=== PATIENT | female | born 1950 | race Caucasian/White ===

== ENCOUNTER 2017-02-05 09:57 | Emergency (ER) | payer OTHER ==
[~2017-02-05] VITALS: Ht 157.5 cm; Wt 62.5 kg
[2017-02-05] MEDS ORDERED: FERR324T12 PO (10:07)
[2017-02-05] MEDS ORDERED: LEVO25TA9 PO (10:07)
[2017-02-05] MEDS ORDERED: ASCO500 PO (10:07)
[2017-02-05] MEDS ORDERED: ASPI81TA2 PO (10:07)
[2017-02-05] MEDS ORDERED: ATOR10TA84 PO (10:07)
[2017-02-05] MEDS ORDERED: NIFE10 PO (10:07)
[2017-02-05 11:15] LABS: APPEARANCE,URINE CLEAR (CLEAR); GLUCOSE, URINE (UA) NEGATIVE (NEGATIVE); KETONES,URINE NEGATIVE (NEGATIVE); LEUKOCYTE ESTERASE ,URINE NEGATIVE (NEGATIVE); PROTEIN,URINE NEGATIVE (NEGATIVE)
[2017-02-05 11:19] LABS: OCCULT BLOOD,URINE TRACE (NEGATIVE); RBC,URINE 0-2 /HPF (0-2); WBC,URINE None Seen /HPF (0-5)
[2017-02-05 11:20] LABS: BASOPHILS % (AUTO) 0.9 % (0.0-2.0); HEMOGLOBIN 11.5 g/dL (12.0-16.0); LYMPHOCYTES # (AUTO) 2.1 K/uL (1.0-4.8); LYMPHOCYTES % (AUTO) 34.2 % (22.0-44.0); MEAN CORPUSCULAR HEMOGLOBIN 31.5 pg (26.0-34.0); MEAN CORPUSCULAR HGB CONC 33.8 G/dL (31.0-37.0); MEAN CORPUSCULAR VOLUME 93 fL (80-100); MONOCYTES # (AUTO) 0.4 K/uL (0.1-1.0); MONOCYTES % (AUTO) 5.8 % (2.0-9.0); NEUTROPHILS # (AUTO) 3.6 K/uL (1.8-7.7); NEUTROPHILS % (AUTO) 58.1 % (40.0-70.0); PLATELET COUNT (AUTO) 172 K/uL (150-450); RED BLOOD CELL COUNT(AUTO) 3.65 MIL/uL (4.00-5.20); RED CELL DISTRIBUTION WIDTH 14.9 % (11.5-14.5); WHITE BLOOD COUNT (AUTO) 6.2 K/uL (4.5-11.0)
[2017-02-05 11:23] LABS: ANION GAP 6 mmol/L (8-16); CALCIUM, TOTAL 9.7 mg/dL (8.8-10.5); CARBON DIOXIDE 32 mmol/L (22-29); CHLORIDE 102 mmol/L (98-107); CREATININE 0.85 mg/dL (0.60-1.30); GLOMERULAR FILTR. RATE CALC > 60 mL/min (>60); POTASSIUM 3.7 mmol/L (3.5-5.1); SODIUM SERUM 140 mmol/L (136-145); UREA NITROGEN, BLOOD 14 mg/dL (7-18)
[2017-02-05 11:28] LABS: ALANINE AMINOTRANSFERASE 22 U/L (12-78); ALBUMIN 4.3 g/dL (3.4-5.0); ASPARTATE AMINOTRANSFERASE 22 U/L (15-37); BILIRUBIN,TOTAL 0.6 mg/dL (0.1-1.0)
[2017-02-05 12:18] VITALS: BP 142/78
== END 2017-02-05 12:26 | disposition home or self-care (01) ==
LOC: EMS 09:59
DX: M54.5 Low back pain (principal); I10 Essential (primary) hypertension; Z79.82 Long term (current) use of aspirin
CPT/HCPCS: 99284

== ENCOUNTER 2017-04-14 19:44 | Emergency (ER) | payer OTHER ==
[~2017-04-14] VITALS: Ht 160 cm; Wt 63.2 kg
[~2017-04-14 19:44] MED LIST: ASCO500 PO; ASPI81TA39 PO; ATOR10TA84 PO; FERR324T12 PO; LEVO25TA9 PO; NIFE10 PO
[2017-04-14] MEDS ORDERED: CLON-570 PO (19:54)
[2017-04-14 20:24] LABS: APPEARANCE,URINE CLEAR (CLEAR); GLUCOSE, URINE (UA) NEGATIVE (NEGATIVE); KETONES,URINE NEGATIVE (NEGATIVE); LEUKOCYTE ESTERASE ,URINE NEGATIVE (NEGATIVE); OCCULT BLOOD,URINE MODERATE (NEGATIVE); PH,URINE 5.5 (5.0-8.0); PROTEIN,URINE NEGATIVE (NEGATIVE)
[2017-04-14 20:25] LABS: ADD UA MICROSCOPIC YES
[2017-04-14] MEDS ORDERED: DONNATAL/LIDOCAINE/MAALOX 55 ML BOTTLE PO ONE (20:30)
[2017-04-14 20:36] LABS: SQUAMOUS EPITHELIAL CELL,UR Few /LPF (None Seen)
[2017-04-14 20:37] LABS: WBC,URINE 0-2 /HPF (0-5)
[2017-04-14 20:41] LABS: BASOPHILS % (AUTO) 0.6 % (0.0-2.0); EOSINOPHILS % (AUTO) 0.8 % (1.0-6.0); HEMATOCRIT 35.8 % (36-46); HEMOGLOBIN 11.9 g/dL (12.0-16.0); LYMPHOCYTES # (AUTO) 2.4 K/uL (1.0-4.8); LYMPHOCYTES % (AUTO) 32.4 % (22.0-44.0); MEAN CORPUSCULAR HEMOGLOBIN 30.9 pg (26.0-34.0); MEAN CORPUSCULAR HGB CONC 33.3 G/dL (31.0-37.0); MEAN CORPUSCULAR VOLUME 93 fL (80-100); MONOCYTES # (AUTO) 0.4 K/uL (0.1-1.0); MONOCYTES % (AUTO) 5.8 % (2.0-9.0); NEUTROPHILS # (AUTO) 4.5 K/uL (1.8-7.7); NEUTROPHILS % (AUTO) 60.4 % (40.0-70.0); PLATELET COUNT (AUTO) 183 K/uL (150-450); RED BLOOD CELL COUNT(AUTO) 3.85 MIL/uL (4.00-5.20); RED CELL DISTRIBUTION WIDTH 14.5 % (11.5-14.5); WHITE BLOOD COUNT (AUTO) 7.5 K/uL (4.5-11.0)
[2017-04-14 21:16] LABS: ANION GAP 9 mmol/L (8-16); CALCIUM, TOTAL 9.4 mg/dL (8.8-10.5); CARBON DIOXIDE 26 mmol/L (22-29); CHLORIDE 103 mmol/L (98-107); CREATININE 0.91 mg/dL (0.60-1.30); GLOMERULAR FILTR. RATE CALC > 60 mL/min (>60); POTASSIUM 3.6 mmol/L (3.5-5.1); SODIUM SERUM 138 mmol/L (136-145); UREA NITROGEN, BLOOD 16 mg/dL (7-18)
[2017-04-14 21:23] LABS: ALANINE AMINOTRANSFERASE 20 U/L (12-78); ALBUMIN 4.1 g/dL (3.4-5.0); ASPARTATE AMINOTRANSFERASE 18 U/L (15-37); BILIRUBIN,TOTAL 0.4 mg/dL (0.1-1.0); TOTAL PROTEIN, SERUM 7.8 g/dL (6.4-8.2)
[2017-04-14 21:43] VITALS: BP 151/82
== END 2017-04-14 21:52 | disposition home or self-care (01) ==
LOC: EMS 19:46
DX: R10.13 Epigastric pain (principal); K29.70 Gastritis, unspecified, without bleeding; M54.5 Low back pain; I10 Essential (primary) hypertension; Z88.8 Allergy status to other drugs, medicaments and biological substances
CPT/HCPCS: 36415; 80053; 81001; 83690; 85025; 99284; Z7610

== ENCOUNTER 2024-06-13 18:24 | Emergency (ER) | payer OTHER ==
[~2024-06-13] VITALS: Ht 162.6 cm; Wt 74.0 kg
[~2024-06-13 18:24] MED LIST changes: +ATOR10TA PO; -ATOR10TA84 PO; +BISA10SU11 PR; +DILT60TA4 PO; +METO25 PO; -NIFE10 PO
[2024-06-13 18:28] VITALS: TEMP 98.8
[2024-06-13 19:29] LABS: BASOPHILS % (AUTO) 0.4 % (0.0-2.0); EOSINOPHILS % (AUTO) 0.7 % (1.0-6.0); HEMATOCRIT 37.5 % (36-46); HEMOGLOBIN 12.2 g/dL (12.0-16.0); LYMPHOCYTES # (AUTO) 1.4 K/uL (1.0-4.8); LYMPHOCYTES % (AUTO) 13.7 % (22.0-44.0); MEAN CORPUSCULAR HEMOGLOBIN 29.9 pg (26.0-34.0); MEAN CORPUSCULAR HGB CONC 32.5 G/dL (31.0-37.0); MEAN CORPUSCULAR VOLUME 92 fL (80-100); MONOCYTES # (AUTO) 0.5 K/uL (0.1-1.0); MONOCYTES % (AUTO) 4.8 % (2.0-9.0); NEUTROPHILS # (AUTO) 8.4 K/uL (1.8-7.7); NEUTROPHILS % (AUTO) 80.4 % (40.0-70.0); PLATELET COUNT (AUTO) 202 K/uL (150-450); RED BLOOD CELL COUNT(AUTO) 4.07 MIL/uL (4.00-5.20); RED CELL DISTRIBUTION WIDTH 14.9 % (11.5-14.5); WHITE BLOOD COUNT (AUTO) 10.5 K/uL (4.5-11.0)
[2024-06-13 19:41] LABS: APPEARANCE,URINE HAZY (CLEAR); BILIRUBIN,URINE NEGATIVE (NEGATIVE); COLOR,URINE DARK YELLOW (YELLOW); GLUCOSE, URINE (UA) NEGATIVE (NEGATIVE); KETONES,URINE NEGATIVE (NEGATIVE); LEUKOCYTE ESTERASE ,URINE LARGE (NEGATIVE); NITRATE,URINE NEGATIVE (NEGATIVE); OCCULT BLOOD,URINE SMALL (NEGATIVE); PROTEIN,URINE 30-70 mg/dL (NEGATIVE); SPECIFIC GRAVITIY, URINE 1.021 (1.003-1.030); UROBILINOGEN,URINE <=1.0 mg/dL (<=1.0)
[2024-06-13 19:42] LABS: CALCIUM, TOTAL 9.8 mg/dL (8.8-10.5); CREATININE 1.14 mg/dL (0.60-1.30); POTASSIUM 4.9 mmol/L (3.5-5.1)
[2024-06-13 19:48] LABS: TROPONIN I-HIGH SENSITIVITY 7 ng/L (<51)
[2024-06-13 19:56] LABS: BACTERIA,URINE Few /HPF (None Seen); RBC,URINE 0-2 /HPF (0-2); SQUAMOUS EPITHELIAL CELL,UR Rare /LPF (None Seen)
[2024-06-13] MEDS ORDERED: LEVO75 PO (20:11)
[2024-06-13] MEDS ORDERED: RIVA2.5T3 PO (20:11)
[2024-06-13] MEDS ORDERED: CLON0.1T2 PO (20:11)
[2024-06-13] MEDS ORDERED: ISOS30TA92 PO (20:11)
[2024-06-13] MEDS ORDERED: ASPI-1444 PO (20:11)
[2024-06-13] MEDS ORDERED: METO50 PO (20:11)
[2024-06-13] MEDS ORDERED: HYDR25TA84 PO (20:11)
[2024-06-13] MEDS ORDERED: OMEP20CA12 PO (20:11)
[2024-06-13] MEDS: ONDANSETRON 4 MG TABLET PO ONE (20:18)
[2024-06-13] MEDS: FAMOTIDINE 20 MG TABLET PO ONE (20:18)
[2024-06-13 21:48] VITALS: BP 153/74; PULSE 90; RESP 16; O2SAT 98
[2024-06-13] MEDS ORDERED: ONDA-104 PO (21:49)
== END 2024-06-13 22:18 | disposition home or self-care (01) ==
LOC: EMS 18:24
DX: R10.84 Generalized abdominal pain (principal); R11.2 Nausea with vomiting, unspecified; E78.00 Pure hypercholesterolemia, unspecified; I10 Essential (primary) hypertension; E03.9 Hypothyroidism, unspecified; K21.9 Gastro-esophageal reflux disease without esophagitis; Z79.82 Long term (current) use of aspirin; Z88.0 Allergy status to penicillin; Z88.8 Allergy status to other drugs, medicaments and biological substances; Z90.49 Acquired absence of other specified parts of digestive tract; Z90.710 Acquired absence of both cervix and uterus; Z90.722 Acquired absence of ovaries, bilateral
CPT/HCPCS: 99284; 80048; 81001; 83690; 83880; 84484; 85025; 87077; 87086; 36415; 93005; Q0162

== ENCOUNTER 2025-03-10 01:26 | Emergency (ER) | payer OTHER ==
[~2025-03-10] VITALS: Ht 160 cm; Wt 63.6 kg
[~2025-03-10 01:26] MED LIST changes: -ASCO500 PO; +ASPI-1444 PO; -ASPI81TA39 PO; -BISA10SU11 PR; -DILT60TA4 PO; +DOCU-119 PO; -FERR324T12 PO; -LEVO25TA9 PO; +LEVO75 PO; +LOSA-381 PO; -METO25 PO; +OMEP20CA12 PO
[2025-03-10 01:53] VITALS: TEMP 97.9
[2025-03-10 02:39] LABS: APPEARANCE,URINE CLEAR (CLEAR); GLUCOSE, URINE (UA) NEGATIVE (NEGATIVE); LEUKOCYTE ESTERASE ,URINE LARGE (NEGATIVE); NITRATE,URINE NEGATIVE (NEGATIVE); OCCULT BLOOD,URINE LARGE (NEGATIVE); SPECIFIC GRAVITIY, URINE 1.005 (1.003-1.030)
[2025-03-10 02:47] LABS: SQUAMOUS EPITHELIAL CELL,UR Rare /LPF (None Seen)
[2025-03-10 03:00] VITALS: BP 161/74; PULSE 75; RESP 16; O2SAT 98
[2025-03-10] MEDS ORDERED: CEPH-558 PO (03:07)
[2025-03-10] MEDS: CEPHALEXIN MONOHYDRATE 500 MG CAPSULE PO ONE (03:13)
== END 2025-03-10 03:31 | disposition home or self-care (01) ==
LOC: EMS 03:31
DX: N39.0 Urinary tract infection, site not specified (principal); M54.50 Low back pain, unspecified; R30.0 Dysuria; E03.9 Hypothyroidism, unspecified; E78.00 Pure hypercholesterolemia, unspecified; I10 Essential (primary) hypertension; Z90.722 Acquired absence of ovaries, bilateral; Z90.49 Acquired absence of other specified parts of digestive tract; Z88.1 Allergy status to other antibiotic agents; Z90.710 Acquired absence of both cervix and uterus; Z79.82 Long term (current) use of aspirin; Z88.8 Allergy status to other drugs, medicaments and biological substances; Z79.899 Other long term (current) drug therapy
CPT/HCPCS: 81001; 87077; 87086; 87186; 99283